=== PATIENT | male | born 1995 | race Asian ===

== ENCOUNTER 2018-08-11 03:21 | Emergency (ER) | payer OTHER ==
[2018-08-11] MEDS ORDERED: methylPREDNISolone Sod Succ/PF 125 MG/2 ML VIAL ONE (03:48)
[2018-08-11] MEDS ORDERED: Water For Inject, Bacteriostat 30 ML ONE (03:48)
[2018-08-11] MEDS ORDERED: Famotidine/PF 20 mg/2ml Vial ONE (03:48)
[2018-08-11] MEDS ORDERED: diphenhydrAMINE 50 MG/ML VIAL ONE (03:48)
== END 2018-08-11 05:36 | disposition home or self-care (01) ==
LOC: SCSER 03:21
DX: L50.0 Allergic urticaria (principal)
CPT/HCPCS: 96374; 96375; J1200; J2930; S0028